=== PATIENT | female | born 1970 | race Caucasian/White ===

== ENCOUNTER 2024-07-17 14:44 | Outpatient (CLI) | payer OTHER, SELFPAY ==
[2024-07-17] MEDS: ALBUTEROL 0.083% 2.5 MG/3 ML NEB IH (15:46)
[2024-07-17] MEDS: METHACHOLINE CHLORIDE 65MG/18ML KIT 64 MG IH (15:46)
== END 2024-07-17 23:59 | disposition home or self-care (01) ==
LOC: RT 14:47
PROVIDERS: PCP Family Medicine; Visit Provider Internal Medicine Pulmonary Disease
DX: R06.00 Dyspnea, unspecified (principal)
CPT/HCPCS: 94070; 95070; J7613; J7674